=== PATIENT | male | born 1945 | race Caucasian/White ===

== ENCOUNTER → 2022-03-17 | Outpatient (CLI) | payer MEDICARE, OTHER ==
[~2022-03-17] MED LIST: CLOP75 PO; METO50ER PO; Norco 5-325 Ta1 EACH PO; SERT25 PO; TAMS.4ER PO; TRAZ50 PO
== END | disposition home or self-care (01) ==
LOC: LAB SHORT 18:51 → LAB 18:51
DX: N39.0 Urinary tract infection, site not specified (principal)
CPT/HCPCS: 87077; 87086; 87186

== ENCOUNTER 2024-12-10 08:31 | Emergency (ER) | payer OTHER ==
[~2024-12-10] VITALS: Ht 175.3 cm; Wt 166.0 kg
[~2024-12-10 08:31] MED LIST changes: +ACET325 PO; +ATOR20 PO; +DICL75ER PO; +Flonase 0.05% N16 GM; +GABA400 PO; +MICO100S VAG; +Prinivil10 MG PO; +Robaxin750 MG PO; +ZYRTEC10 M2 PO
[2024-12-10] MEDS ORDERED: FentaNYL Citrate 50 MCG/ML 2 ML Injection IV ONE ×2 (09:35→12:25)
[2024-12-10] MEDS ORDERED: Acetaminophen 500 MG Tab PO ONE (09:35)
[2024-12-10] MEDS ORDERED: Ketorolac Tromethamine 15mg Vial IV ONE (09:35)
[2024-12-10 09:38] LABS: Source, Urine Clean Catch
[2024-12-10 09:42] LABS: BASOPHILS ABSOLUTE AUTO 0.01 K/mm3 (0.00-0.23); BASOPHILS PERCENT AUTO 0 % (0-2); EOSINOPHILS ABSOLUTE AUTO 0.19 K/mm3 (0.00-0.68); EOSINOPHILS PERCENT AUTO 4 % (0-6); Hematocrit 42.5 % (37.0-53.0); Hemoglobin 14.5 g/dL (13.5-17.5); IMMATURE GRAN ABSOLUTE AUTO 0.01 K/mm3 (0.00-0.10); IMMATURE GRAN PERCENT AUTO 0 % (0-1); LYMPHOCYTES ABSOLUTE AUTO 0.98 K/mm3 (0.84-5.20); LYMPHOCYTES PERCENT AUTO 19 % (21-46); MONOCYTES ABSOLUTE AUTO 0.48 K/mm3 (0.16-1.47); MONOCYTES PERCENT AUTO 9 % (4-13); Mean Corpuscular HGB 29.1 pg (26.0-34.0); Mean Corpuscular HGB Conc 34.1 g/dL (31.5-36.5); Mean Corpuscular Volume 85 fL (80-100); Mean Platelet Volume 9.6 fL (9.1-12.4); NEUTROPHILS ABSOLUTE AUTO 3.59 K/mm3 (1.96-9.15); NEUTROPHILS PERCENT AUTO 68 % (41-73); Platelet Count 117 K/mm3 (150-400); RDW Coefficient Variation 14.3 % (11.7-14.2); RDW Standard Deviation 43.8 fL (35.1-46.3); Red Blood Cell Count 4.98 M/mm3 (4.30-5.90); White Blood Cell Count 5.26 K/mm3 (4.00-11.30)
[2024-12-10 09:44] LABS: Appearance, Urine Clear (Clear); Bilirubin, Urine Neg (Neg); Blood, Urine 5+ (Neg); Color, Urine Yellow (P-Yellow); Glucose Qualitative, Urine Neg (Neg); Ketones, Urine Neg (Neg); Leukocyte Esterase, Urine 1+ (Neg); Nitrite, Urine Neg (Neg); Protein, Urine 2+ (Neg); Urobilinogen, Urine 1+ (Normal)
[2024-12-10 09:53] LABS: Albumin, Blood 3.5 g/dL (3.4-5.0); Albumin/Globulin Ratio 1.1 (0.8-1.8); Bilirubin, Total 0.6 mg/dL (0.1-1.0); Bun/Creatinine Ratio 16.5 (12.0-20.0); Calcium, Blood 8.9 mg/dL (8.5-10.1); Creatinine, Blood 1.09 mg/dL (0.60-1.20); Globulin, Blood 3.2 g/dL (2.2-4.0); Potassium, Blood 3.7 mmol/L (3.5-5.5); Total Protein, Blood 6.7 g/dL (6.4-8.2)
[2024-12-10 09:56] LABS: Bacteria Many /hpf; Red Blood Cells, Urine 50-100 /hpf (0-2); Squamous Epithelial Cells Many /hpf (Few)
[2024-12-10 09:57] LABS: Calcium Oxalate Crystals Few /hpf
[2024-12-10] MEDS ORDERED: CefTRIAXone Sodium 1,000 MG in NS 100 ML IV ONE (10:05)
[2024-12-10 13:30] VITALS: BP 177/86
[2024-12-10] MEDS ORDERED: Flomax0.4 MG PO ×2 (13:56→13:58)
[2024-12-10] MEDS ORDERED: OXAYDO5 M1 PO (13:56)
== END 2024-12-10 14:58 | disposition home or self-care (01) ==
LOC: ER 08:31
PROVIDERS: Student in an Organized Health Care Education/Training Program
DX: N13.2 Hydronephrosis with renal and ureteral calculous obstruction (principal); N28.89 Other specified disorders of kidney and ureter; E78.5 Hyperlipidemia, unspecified; I48.91 Unspecified atrial fibrillation; F43.10 Post-traumatic stress disorder, unspecified; I10 Essential (primary) hypertension; Z79.899 Other long term (current) drug therapy
CPT/HCPCS: 74177; 80053; 81001; 83690; 85025; 96374-59; 96375; 96376; 99284-25; A9270; J0696; J1885; J3010; Q9967

== ENCOUNTER 2025-09-05 06:46 | Day surgery (SDC) | payer OTHER ==
[~2025-09-05] VITALS: Ht 172.7 cm; Wt 132.9 kg
[~2025-09-05 06:46] MED LIST changes: +Balanced Salt Epinephrine Irrigation Solution 500 mL IR SCH; +Flomax0.4 MG PO; +Moxifloxacin HCL 0.5 MG/0.1 ML 0.4MLSYR RIGHTEYE SCH; +NS 500 ML IV ONE; +OXAYDO5 M1 PO; +PHENYLEPHRINE\\TROPICAMIDE\\TETRACAINE OPHTHALMIC DILATING SOLN RIGHTEYE PRN; +Povidone-Iodine 450 DROP/30 ML Solution ONE; +Povidone-Iodine 450 DROP/30 ML Solution RIGHTEYE SCH; +Tetracaine HCl/Pf 0.5% Opth Soln 4 ml ONE
[2025-09-05] MEDS ORDERED: PSEU120ER PO (07:41)
[2025-09-05] MEDS ORDERED: PANT40 PO (07:42)
[2025-09-05] MEDS ORDERED: REFRESH RELIEVA10 M4 OP (07:42)
[2025-09-05] MEDS ORDERED: MIRABEGRON ER25 MG PO (07:42)
[2025-09-05] MEDS ORDERED: CHLO25B PO (07:43)
[2025-09-05] MEDS ORDERED: DICLOFENAC SOD100 GM TP (07:43)
[2025-09-05] MEDS ORDERED: ARTIFICIAL TEA1 EAC1 (07:44)
[2025-09-05] MEDS ORDERED: Triamcinolone A15 G3 TOP (07:44)
[2025-09-05] MEDS ORDERED: LOSA50 PO (07:44)
[2025-09-05] MEDS ORDERED: Norco 7.5-3251 EACH PO (07:45)
[2025-09-05] MEDS ORDERED: ASPIR 8181 M1 PO (07:45)
[2025-09-05] MEDS ORDERED: NS 500 ML IV ONE (07:52)
--- NOTE | 2025-09-05 07:53 | NUR ---
09/05/25 [id number] Erika Rangel CALL LIGHT WITHIN REACH. FAMILY AT BEDSIDE. EYE DROPS IN AROUND [id number]
[2025-09-05] MEDS ORDERED: FentaNYL Citrate 50 MCG/ML 2 ML Injection ONE (07:58)
[2025-09-05] MEDS ORDERED: Midazolam HCl 1MG / ML 2ML Vial ONE (07:58)
[2025-09-05 09:06] VITALS: BP 137/68
== END 2025-09-05 09:00 | disposition home or self-care (01) ==
LOC: ORSCSDS 06:46
PROVIDERS: Student in an Organized Health Care Education/Training Program
PROC: 08RJ3JZ Replacement of Right Lens with Synthetic Substitute, Percutaneous Approach (ICD-10-PCS; principal; 2025-09-05 08:30)
DX: H25.813 Combined forms of age-related cataract, bilateral (principal); I48.91 Unspecified atrial fibrillation; E78.5 Hyperlipidemia, unspecified; I10 Essential (primary) hypertension; K21.9 Gastro-esophageal reflux disease without esophagitis; Z86.73 Personal history of transient ischemic attack (TIA), and cerebral infarction without residual deficits; F43.10 Post-traumatic stress disorder, unspecified; E66.9 Obesity, unspecified; Z68.41 Body mass index [BMI] 40.0-44.9, adult; Z79.82 Long term (current) use of aspirin; Z79.02 Long term (current) use of antithrombotics/antiplatelets; Z79.899 Other long term (current) drug therapy; Z87.891 Personal history of nicotine dependence
CPT/HCPCS: J2003; J2250; J3010; J7040; V2632